=== PATIENT | male | born 1980 | race Caucasian/White ===

== ENCOUNTER 2018-01-29 19:52 | Emergency (ER) | payer OTHER ==
--- NOTE | 2018-01-29 20:03 | PDOC ---
Rapid Medical Evaluation Medical Evaluation: Allergies Allergy/AdvReac Type Severity Reaction Status Date / Time No Known Allergies Allergy Verified 08/25/12 02:00 01/29/18 20:02 I have performed a brief in-person evaluation of this patient. The patient presents with a chief complaint of: Dizziness w/ BRIZUELA and CP today, ? similar to anxiety but concerned about "heart attack" per pt's . H/o anxiety /panic attacks andf possible depression, not on meds. No pmhx and denies tob use or illicit drugs Pertinent physical exam findings:Stable w/ unremarkable exam I have ordered the following: EKG The patient will proceed to the ED for further evaluation.
[2018-01-29 20:05] VITALS: TEMP 97.8; BMI 26.6
--- NOTE | 2018-01-29 20:48 | PDOC ---
History of Present Illness - General Chief Complaint: Lightheaded Stated Complaint: BLOOD PRESSURE Time Seen by Provider: 01/29/18 20:09 History Source: Patient Exam Limitations: No Limitations - History of Present Illness Initial Comments: 01/29/18 20:58 Patient is a 37 y/o male, PMH of anxiety, panic attacks, who presents to the ED complaining of nausea, chest pain, lightheadedness and headache. Patient states that this feels like his anxiety attack however he is unsure if the chest pain is related to his heart so he came for further evaluation. He states that his anxiety attack began approximately 3 hours ago. He occasionally takes the family members Klonopin with relief however he did not take any tonight. Denies fevers, chills, recent, vomiting, difficulty breathing, shortness of breath. Past History - Travel Traveled outside of the country in the last 30 days: No Close contact w/someone who was outside of country & ill: No - Past Medical History Allergies/Adverse Reactions: Allergies Allergy/AdvReac Type Severity Reaction Status Date / Time No Known Allergies Allergy Verified 01/29/18 20:06 Home Medications: Ambulatory Orders No Home Medications 0 dose .ROUTE UTDICT 08/25/12 - Suicide/Smoking/Psychosocial Hx Smoking Status: No Smoking History: Never smoked Have you smoked in the past 12 months: No Number of Cigarettes Smoked Daily: 0 Hx Alcohol Use: No Drug/Substance Use Hx: No Review of Systems - Review of Systems Able to Perform ROS?: Yes Comments:: 01/29/18 21:45 CONSTITUTIONAL: Absent: fever, chills, diaphoresis, generalized weakness, malaise, loss of appetite HEENT: Absent: rhinorrhea, nasal congestion, throat pain, throat swelling, difficulty swallowing, mouth swelling, ear pain, eye pain, visual Changes CARDIOVASCULAR: Absent: chest pain, loss of consciousness, palpitations, irregular heart rate, peripheral edema RESPIRATORY: Absent: cough, shortness of breath, dyspnea with exertion, orthopnea, wheezing, stridor, hemoptysis GASTROINTESTINAL: Absent: abdominal pain, abdominal distension, nausea, vomiting, diarrhea, constipation, melena, hematochezia GENITOURINARY: Absent: dysuria, frequency, urgency, hesitancy, hematuria, flank pain, genital pain MUSCULOSKELETAL: Absent: myalgia, arthralgia, joint swelling SKIN: Absent: rash, itching, pallor HEMATOLOGIC/IMMUNOLOGIC: Absent: easy bleeding, easy bruising, lymphadenopathy, frequent infections ENDOCRINE: Absent: unexplained weight gain, unexplained weight loss, heat intolerance, cold intolerance NEUROLOGIC: Present: headache Absent: headache, focal weakness or paresthesias, dizziness, unsteady gait, seizure, mental status changes, bladder or bowel incontinence PSYCHIATRIC: Present: anxiety Absent: depression, suicidal or homicidal ideation, hallucinations. Is the patient limited German proficient: No *Physical Exam - Vital Signs Last Vital Signs Temp Pulse Resp BP Pulse Ox 97.8 F 99 H 16 131/88 97 01/29/18 20:02 01/29/18 20:02 01/29/18 20:02 01/29/18 20:02 01/29/18 20:02 - Physical Exam Comments: 01/29/18 21:25 GENERAL: Well developed, well nourished. Awake and alert. No acute distress. HEENT: Normocephalic, atraumatic. PERRLA, EOMI. No conjunctival pallor. Sclera are non- icteric. Moist mucous membranes. Oropharynx is clear. NECK: Supple. Full ROM. No JVD. Carotid pulses 2+ and symmetric, without bruits. No thyromegaly. No lymphadenopathy. CARDIOVASCULAR: Regular rate and rhythm. No murmurs, rubs, or gallops. Distal pulses are 2+ and symmetric. PULMONARY: No evidence of respiratory distress. Lungs clear to auscultation bilaterally. No wheezing, rales or rhonchi. ABDOMINAL: Soft. Non-tender. Non-distended. No rebound or guarding. No organomegaly. Normoactive bowel sounds. MUSCULOSKELETAL Normal range of motion at all joints. No bony deformities or tenderness. No CVA tenderness. EXTREMITIES: No cyanosis. No clubbing. No edema. No calf tenderness. SKIN: Warm and dry. Normal capillary refill. No rashes. No jaundice. NEUROLOGICAL: Alert, awake, appropriate. Cranial nerves 2-12 intact. No deficits to light touch and temperature in face, upper extremities and lower extremities. No motor deficits in the in face, upper extremities and lower extremities. Normoreflexic in the upper and lower extremities. Normal speech. Toes are down- going bilaterally. Gait is normal without ataxia. PSYCHIATRIC: Cooperative. Good eye contact. Appropriate mood and affect. Heart Score/ECG Review - History History: Slightly suspicious - Electrocardiogram EKG: Normal - Age Age: </= 45 - Risk Factors Based on the list above the patient has:: No risk factors known - Troponin Troponin: </= normal limit - Score Heart Score - Total: 0 ED Treatment Course - LABORATORY CBC & Chemistry Diagram: 01/29/18 21:08 01/29/18 21:08 Medical Decision Making - Medical Decision Making 01/29/18 21:27 Pt. is a 37 y/o M with PMH of anxiety attacks, who presents to the ED after having chest pain, lightheadedness, shortness of breath and nausea. Pt. reports most of his symptoms have resolved at this time with the exception of light headedness and diminished chest pain. Low suspicion for ACS at this time, however will r/o. No family hx of ACS. Perc 0. 1. Labs 2. IVF, reglan/benadryl, klonapin. 3. EKG 4. Re-evaluate EKG: NSR, rate: 79. Normal axis/intervals. No acute ST-T wave changes. Overall normal EKG. 01/29/18 23:41 Troponin is WNL at this time. Pt. is low risk for ACS at this time. Normal EKG. Pt. feels much better after medication, and reports a resolve of symptoms. Will d.c home at this time. PCP and psychiatry referrals given. Return precautions given. Pt. understands all d.c instructions and all questions were answered. *DC/Admit/Observation/Transfer Diagnosis at time of Disposition: Anxiety attack - Discharge Dispostion Disposition: HOME Condition at time of disposition: Stable Admit: No - Referrals Referrals: Eros Fagan MD [Staff Physician] - Dawit Regan NP [Nurse Practitioner] - - Patient Instructions Printed Discharge Instructions: DI for Anxiety -- Adult Additional Instructions: Your blood work and EKG were normal today. You most likely experienced a panic attack. Please follow-up with the primary care and psychiatric referrals provided to you. Drink plenty of fluids and get plenty of rest. You may take motrin as needed for chest pain. Return to the emergency department if you have worsening lightheadedness, dizziness, chest pain, shortness of breath, or have any changes in your symptoms. - Post Discharge Activity Forms/Work/School Notes: Back to Work
[2018-01-29] MEDS ORDERED: METOCLOPRAMIDE HCL INJECTION 10 MG/2 ML VIAL IVPB ONE (20:53)
[2018-01-29] MEDS ORDERED: SODIUM CHLORIDE 1,000 ML IV STA (20:53)
[2018-01-29] MEDS ORDERED: clonazePAM 0.5 MG TABLET PO ONE (20:53)
[2018-01-29] MEDS ORDERED: METOCLOPRAMIDE HCL INJECTION 10 MG/2 ML VIAL ONE (20:56)
[2018-01-29] MEDS ORDERED: clonazePAM 0.5 MG TABLET ONE (20:56)
[2018-01-29 21:14] LABS: BASO % 0.2 % (0-2.0); EOS % 0.6 % (0-4.5); HEMATOCRIT 44.3 % (35.4-49); LYMPH % 19.9 % (8-40); MCH 29.4 pg (25.7-33.7); MCHC 33.9 g/dl (32.0-35.9); MEAN CELL VOLUME 86.6 fl (80-96); MEAN PLT VOLUME 9.2 fl (7.5-11.1); MONO % 4.8 % (3.8-10.2); NEUT % 74.5 % (42.8-82.8); PLATELET COUNT 220 K/MM3 (134-434); RBC 5.12 M/mm3 (4.00-5.60); RDW 13.3 % (11.9-15.9); WHITE BLOOD COUNT 11.5 K/mm3 (4.0-10.0)
[2018-01-29 21:51] LABS: ALBUMIN 4.7 g/dl (3.4-5.0); ANION GAP 7 (8-16); BILIRUBIN,TOTAL 0.6 mg/dL (0.2-1.0); BLOOD UREA NITROGEN 17 mg/dL (7-18); CALCIUM 9.1 mg/dL (8.5-10.1); CHLORIDE 102 mmol/L (98-107); CO2 27 mmol/L (21-32); CREATININE 1.1 mg/dL (0.7-1.3); GLUCOSE,RANDOM 95 mg/dL (74-106); SGPT/ALT 26 U/L (12-78); SODIUM 136 mmol/L (136-145); TOT PROT 8.3 g/dl (6.4-8.2)
[2018-01-29 21:53] LABS: ALK PHOS 66 U/L (45-117)
[2018-01-29 21:55] LABS: SGOT/AST 29 U/L (15-37)
[2018-01-29] MEDS ORDERED: IBUPROFEN 400 MG TABLET (FP) PO ONE ×2 (22:48→22:50)
[2018-01-29 23:13] VITALS: BP 105/60; PULSE 85
--- NOTE | 2018-01-31 20:30 | EKG ---
Test Reason : Blood Pressure : / mmHG Vent. Rate : 079 BPM Atrial Rate : 079 BPM P-R Int : 128 ms QRS Dur : 086 ms QT Int : 374 ms P-R-T Axes : 049 085 038 degrees QTc Int : 428 ms NORMAL SINUS RHYTHM NORMAL ECG WHEN COMPARED WITH ECG OF 25-AUG-2012 03:38, NO SIGNIFICANT CHANGE WAS FOUND Confirmed by MARV CHAVEZ MD ([id number]) on 01/31/2018 8:30:33 PM Referred By: Confirmed By:MARV CHAVEZ MD
== END 2018-01-29 23:13 | disposition home or self-care (01) ==
LOC: JER 19:52
PROC: 3E033GC Introduction of Other Therapeutic Substance into Peripheral Vein, Percutaneous Approach (ICD-10-PCS; principal; 2018-01-29)
PROC: 3E033GC Introduction of Other Therapeutic Substance into Peripheral Vein, Percutaneous Approach (ICD-10-PCS; 2018-01-29)
DX: F41.0 Panic disorder [episodic paroxysmal anxiety] (principal); F41.8 Other specified anxiety disorders
CPT/HCPCS: 36415; 80053; 84484; 85025; 93005; 93010; 99283-25

== ENCOUNTER 2020-07-23 18:27 | Emergency (ER) | payer OTHER ==
--- NOTE | 2020-07-23 18:41 | PDOC ---
Rapid Medical Evaluation Time Seen by Provider: 07/23/20 18:35 Medical Evaluation: Allergies Allergy/AdvReac Type Severity Reaction Status Date / Time No Known Allergies Allergy Verified 07/23/20 18:35 07/23/20 18:36 CC: left arm tingling after waking up this afternoon. He states was sleeping on his left side and symptoms have made him nervous. Denies chest pain, sob, dizziness Exam: vss, 5 + hand grasp, left arm FROM and warm Plan: EKG, likely compressed ulnar nerve Discharge Disposition - Diagnosis Tingling of left upper extremity - Referrals - Patient Instructions - Post Discharge Activity
[2020-07-23 18:50] VITALS: BP 135/81; PULSE 91; TEMP 98.2; BMI 26.1
--- NOTE | 2020-07-23 20:25 | PDOC ---
History of Present Illness - General Chief Complaint: Pain Stated Complaint: ANXIETY Time Seen by Provider: 07/23/20 18:35 History Source: Patient - History of Present Illness Initial Comments: 07/23/20 21:07 40-year-old male complaining of anxiety attack 2 hours prior to arrival. Patient reported some tingling feeling to the left hand after the episode of anxiety. Patient reports that symptoms have completely resolved at this point. Patient also reports that he has been heavily drinking last night unsure if that triggered his anxiety. Patient currently not on any medication. Past History - Medical History Allergies/Adverse Reactions: Allergies Allergy/AdvReac Type Severity Reaction Status Date / Time No Known Allergies Allergy Verified 07/23/20 18:35 Home Medications: Ambulatory Orders No Home Medications 0 dose .ROUTE UTDICT 08/25/12 COPD: No Psychiatric Problems: (ANXIETY) - Immunization History Immunization Up to Date: Yes - Psycho-Social/Smoking History Smoking Status: No Smoking History: Never smoked Have you smoked in the past 12 months: No Number of Cigarettes Smoked Daily: 0 - Substance Abuse Hx (Audit-C & DAST Scrn) How often the patient has a drink containing alcohol: Never Score: In Men: 4 or > Positive; In Women: 3 or > Positive: 0 Screen Result (Pos requires Nsg. Audit-10AR): Negative In the last yr the pt used illegal drug/Rx for NonMed reason: No Score: Yes response is considered Positive: 0 Screen Result (Positive result requires Nsg. DAST-10): Negative *Physical Exam - Vital Signs Last Vital Signs Temp Pulse Resp BP Pulse Ox 98.2 F 91 H 18 135/81 98 07/23/20 18:35 07/23/20 18:35 07/23/20 18:35 07/23/20 18:35 07/23/20 18:35 - Physical Exam General Appearance: Yes: Appropriately Dressed Respiratory/Chest: positive: Lungs Clear, Normal Breath Sounds Cardiovascular: positive: Regular Rhythm, Regular Rate Medical Decision Making - Medical Decision Making 07/24/20 A: anxiety P: EKG asymptomatic now will d/c home close pcp follow up discussed with patient Discharge - Discharge Information Problems reviewed: Yes Clinical Impression/Diagnosis: Anxiety Disposition: HOME - Follow up/Referral - Patient Discharge Instructions Patient Printed Discharge Instructions: DI for Anxiety -- Adult Additional Instructions: Please follow-up with your doctor as soon as possible return to the emergency room for any worsening symptoms - Post Discharge Activity
--- NOTE | 2020-07-24 10:37 | EKG ---
Test Reason : Blood Pressure : / mmHG Vent. Rate : 060 BPM Atrial Rate : 060 BPM P-R Int : 128 ms QRS Dur : 084 ms QT Int : 392 ms P-R-T Axes : 058 084 060 degrees QTc Int : 392 ms NORMAL SINUS RHYTHM NORMAL ECG WHEN COMPARED WITH ECG OF 29-JAN-2018 20:13, NO SIGNIFICANT CHANGE WAS FOUND Confirmed by Armani Lucas MD ([id number]) on 07/24/2020 10:36:47 AM Referred By: Confirmed By:Armani Lucas MD
== END 2020-07-23 21:00 | disposition home or self-care (01) ==
LOC: JER 18:27
DX: F41.9 Anxiety disorder, unspecified (principal)
CPT/HCPCS: 93005; 93010; 99283-25